=== PATIENT | female | born 1990 | race Two or more races ===

== ENCOUNTER 2017-10-13 14:50 | Emergency (ER) | payer SELFPAY ==
[2017-10-13 15:05] VITALS: BP 121/80; PULSE 67; RESP 18; TEMP 98.2; O2SAT 99
--- NOTE | 2017-10-13 15:21 | ED PDOC ---
Lower Extremity Pain/Injury Time Seen by Provider: 10/13/17 15:10 Chief Complaint (Nursing): Lower Extremity Problem/Injury Chief Complaint (Provider): left foot pain History Per: Patient History/Exam Limitations: no limitations Onset/Duration Of Symptoms: Days (x3 weeks), Worse Since Additional Complaint(s): Patient is 27 y/o female who presents to ED with complaints of left foot 2nd toe pain. Pain symptoms began 3 weeks ago but have progressively gotten worse. Today the pain has gotten to a point where she can barely walk prompting the ED visit. She states that she works out often and believes that this may have exacerbated the condition. She took Aleve in the past to manage pain but had no relief. She denies any injury or trauma or taking any medication today prior to arrival. PMD: None Past Medical History Reviewed: Historical Data, Nursing Documentation, Vital Signs Vital Signs: Last Vital Signs Temp 98.2 F 10/13/17 15:03 Pulse 67 10/13/17 15:03 Resp 18 10/13/17 15:03 BP 121/80 10/13/17 15:03 Pulse Ox 99 10/13/17 15:03 - Medical History PMH: No Chronic Diseases - Surgical History Other surgeries: right knee surgery - Family History Family History: States: No Known Family Hx - Living Arrangements Living Arrangements: With Friends/Others - Social History Current smoker - smoking cessation education provided: No Alcohol: Social Drugs: Denies - Home Medications Home Medications: Ambulatory Orders Medication Instructions Recorded Ibuprofen [Motrin Tab] 800 mg PO Q8 PRN #20 tab 10/13/17 - Allergies Allergies/Adverse Reactions: Allergies Allergy/AdvReac Type Severity Reaction Status Date / Time ceptra Allergy RASH Uncoded 10/13/17 15:03 Wells Criteria for PE - Wells Criteria for Pulmonary Embolism Clinical Signs and Symptoms of DVT: No P.E is #1 Diagnosis, or Equally Likely: No Heart Rate >100: No Immobilization at least 3 days;Surgery previous 4 weeks: No Previous, objectively diagnosed PE or DVT: No Hemoptysis: No Malignancy w/treatment within 6 months, or palliative: No Total Score: 0 Review of Systems ROS Statement: Except As Marked, All Systems Reviewed And Found Negative Constitutional: Negative for: Fever Musculoskeletal: Positive for: Foot Pain (left foot, second toe) Physical Exam - Reviewed Nursing Documentation Reviewed: Yes Vital Signs Reviewed: Yes - Physical Exam Appears: Positive for: Well, Non-toxic, No Acute Distress Head Exam: Positive for: NORMAL INSPECTION Skin: Positive for: Normal Color. Negative for: Rash Eye Exam: Positive for: Normal appearance Extremity: Positive for: Other (left foot exam - unremarkable, full rom of all toes, no erythema, swelling or ecchymosis noted) Neurologic/Psych: Positive for: Alert, Oriented - Laboratory Results Urine POC: Negative (test refused, patient states she is certain she is not ) - ECG O2 Sat by Pulse Oximetry: 99 (RA) Pulse Ox Interpretation: Normal - Other Rad Left foot x-ray X-Ray: Interpreted by Me, Viewed By Me X-Ray Interpretation: no fx, no dis Medical Decision Making Medical Decision Making: Time: 15:14 Initial Impression: 27 y/o female with left second toe pain Initial Plan: --Patient given Motrin 600 mg PO --X-Ray of left foot, 3 views Patient is aware of x-ray results, all questions answered. Crutches given. See procedure note. Advised, ice, elevation and motrin for pain. Patient was referred to podiatry clinic for follow up. Scribe Attestation: Documented by Olivier Tellez, acting as a scribe for Laverne Rocha PA-C Provider Scribe Attestation: All medical record entries made by the Scribe were at my direction and personally dictated by me. I have reviewed the chart and agree that the record accurately reflects my personal performance of the history, physical exam, medical decision making, and the department course for this patient. I have also personally directed, reviewed, and agree with the discharge instructions and disposition. Procedures - Splinting Location: left foot Pre-Made Type: suzanne tape 2nd and 3rd toes, ortho shoe Pre-Proc Neuro Vasc Exam: normal Post-Proc Neuro Vasc Exam: normal Disposition - Clinical Impression Clinical Impression: Toe sprain - Patient ED Disposition Is Patient to be Admitted: No Counseled Patient/Family Regarding: Studies Performed, Diagnosis, Need For Followup, Rx Given - Disposition Referrals: Podiatry Clinic [Outside] Disposition: Routine/Home Disposition Time: 16:00 Condition: STABLE Additional Instructions: Ice, rest and elevate affected area. Take rx meds as directed as needed for pain. Avoid any strenuous activity. Follow up with podiatry clinic for any persistent symptoms. Prescriptions: Ibuprofen [Motrin Tab] 800 mg PO Q8 PRN #20 tab PRN Reason: Pain, Moderate (4-7) Instructions: Foot Sprain (DC) Forms: [employer] (Ivorian)
--- NOTE | 2017-10-13 15:53 | RAD ---
PROCEDURE: Left Foot Radiographs. HISTORY: pain to 2nd toe COMPARISON: None. FINDINGS: BONES: Normal. No fracture. JOINTS: Normal. SOFT TISSUES: Normal. OTHER FINDINGS: None. IMPRESSION: Normal left foot radiographs.
== END 2017-10-13 16:07 | disposition home or self-care (01) ==
LOC: H.ER 14:50
DX: S93.502A Unspecified sprain of left great toe, initial encounter (principal); Y92.89 Other specified places as the place of occurrence of the external cause